=== PATIENT | female | born 1990 | race Caucasian/White ===

== ENCOUNTER 2022-07-15 01:27 | Day surgery (SDC) | payer OTHER, SELFPAY ==
[2022-07-08 10:52] VITALS: BMI 21.2
--- NOTE | 2022-07-08 11:05 | PC.NURSE ---
Report to the Outpatient Waiting Room, entrance under the green pavilion located off [facility], at 0730 on 07/15/22. Planned Procedure Time: 0930. Time changes happen often and if your time is changed the preop area will call you the afternoon before. - You and your visitor will be asked to self-screen and do not enter if you have any COVID symptoms. - Only one visitor is requested with a max of two and NO children visitors are allowed at this time. - The patient visitor may be requested to leave or wait in car when not with patient due to distancing restrictions. - A mask is optional within the hospital at this time. Patients may have clear liquids (water, carbonated beverages, clear teas, apple juice) until 3 hours prior to surgery with a maximum of 20 ounces. - No food from midnight until time of surgery Take the following medications with a SIP of water the morning of surgery: N/A DO NOT STOP ANY OF YOUR OTHER PRESCRIPTION MEDICATIONS PRIOR TO SURGERY ?EXCEPT THE FOLLOWING Medications to discontinue per physician N/A Please no make-up, nail hebrew, hairspray, perfume, deodorant, or body powder the day of surgery. No jewelry (including any body piercings) or valuables the day of surgery, leave them at home. Please take a shower or bath the night before, or the morning of, surgery with an antibacterial soap. Wear comfortable, loose fitting clothing. - Jewelry must be removed prior to entering the operating room. Rings and piercings that are not removed may be cut off. - The hospital will not accept responsibility for valuables. - Please leave all valuables, including medications, at home the day of surgery. If you are going home after surgery, a licensed special needs bus driver must drive you home. - NO public transportation without another adult if you receive anesthesia. - We recommend that an adult stay with you for 24 hours following discharge. - We also recommend that you do not drive, make important decision, drink alcoholic beverages, or take any drugs that were not prescribed by your health care provider for at least 24 hours after your discharge time. Follow any additional instructions given to you from your surgeon. If you or anyone in your household have experienced Covid symptoms in the past week, please notify your surgeon or the nurse liaison at the phone number below for possible testing. Telephone instructions given to patient and asked if any additional questions and then verbalized understanding. Patient advised to call surgeon office or pre surgery nurse liaison [phone] if any additional questions.
--- NOTE | 2022-07-14 11:43 | P.PNAN_ITS ---
Anes - Initial Pre Proc Eval Procedure: Operation Date: 07/15/22 09:30 Proposed Procedures p Diagnostic Laparoscopy, Bilateral Salpingectomy - Mercedes Greenwood DO Date/Time: 07/14/22 11:43 Surgeon: Mercedes Greenwood DO Pre Op Diagnosis: Desires Surgical Sterility Patient Data Age: 31 Gender: F Height: 1.63 m Weight: 56.25 kg Allergies Allergy/AdvReac Type Severity Reaction Status Date / Time No Known Allergies Allergy Verified 07/15/22 08:06 Home Medications Medication Instructions Recorded Confirmed Type citalopram 20 mg tablet (Celexa) 20 mg PO HS 07/08/22 07/15/22 History Patient hx anesthesia problems: none Family hx anesthesia problems: none Results Review: All pre-operative results and documents have been reviewed as part of the pre- operative evaluation. [facility] Past Medical History Medical History Anxiety Bipolar 1 disorder Depression Marijuana abuse Smoker Social History Social History Smoking packs per day: 0.75 Smoking cigarettes per day: 15.0 Years smoked: 19 Smoking pack-years: 14.25 Smoking status: Current every day smoker Tobacco type: cigarettes Alcohol intake: current Alcohol use details: glass of wine per month Substance use type: marijuana Other substance usage details: medical marijuana card-uses 1-2x/day Living arrangements: with family Spiritual care concerns: No Anes - Eval Final PreProcedure Day of Procedure 07/14/22 11:43 Patient weight: normal Heart: regular rate and rhythm Lungs: clear to auscultation and normal air movement Airway: Mallampati scale class II Neurological: alert and oriented Last oral intake: >/= 8 hours ASA classification: II Emergent: no Anesthetic plan: proceed Anesthesia type and monitoring: general ETT Results Review: All pre-operative results and documents have been reviewed as part of the pre- operative evaluation. Informed Consent: The patient's anesthetic plan and its attendant risks and benefits were discussed with the patient/family/POA. Questions were solicited and answers provided to the satisfaction of the patient/family/POA.
[2022-07-15] VITALS (9 sets, daily range): BP systolic 97–127; BP diastolic 61–75; PULSE 50–84; RESP 12–20; TEMP 36.1–36.6; O2SAT 95–100
[2022-07-15] MEDS: ACETAMINOPHEN 500 MG TABLET 1000 MG PO (08:08)
[2022-07-15] MEDS: GABAPENTIN 300 MG CAPSULE PO (08:08)
[2022-07-15] MEDS: LACTATED RINGERS 1,000 ML 30 ML IV CONT ×2 (09:01→10:46)
--- NOTE | 2022-07-15 09:11 | WPDHPUPDATE1 ---
History and Physical Update Update Date/Time: 07/15/22 09:11 History and Physical has been reviewed, including an updated exam of the patient. There are NO changes in the patient's condition. Risks, benefits, and alternatives have been discussed and questions answered. Patient agrees to proceed with procedure.
--- NOTE | 2022-07-15 09:11 | PM.IMHP ---
H&P: HPI History of Present Illness Date/Time: 07/15/22 09:11 Chief Complaint: I'm here for my surgery Narrative: Patient presents for surgical sterilization. Review of Systems Review of Systems: All systems reviewed & are unremarkable except as noted in HPI and below PMFSH Past Medical History Medical History Anxiety Bipolar 1 disorder Depression Marijuana abuse Smoker Social History Social History Smoking packs per day: 0.75 Smoking cigarettes per day: 15.0 Years smoked: 19 Smoking pack-years: 14.25 Smoking status: Current every day smoker Tobacco type: cigarettes Alcohol intake: current Alcohol use details: glass of wine per month Substance use type: marijuana Other substance usage details: medical marijuana card-uses 1-2x/day Living arrangements: with family Spiritual care concerns: No Meds Home Medications and Allergies Home Medications Medication Instructions Recorded Confirmed Type citalopram 20 mg tablet (Celexa) 20 mg PO HS 07/08/22 07/15/22 History Allergies Allergy/AdvReac Type Severity Reaction Status Date / Time No Known Allergies Allergy Verified 07/15/22 08:06 Vital Signs Vital Signs - 24 hr 07/15/22 07:49 Temperature 36.1 C L Pulse Rate 63 Respiratory Rate 16 Blood Pressure 100/64 Pulse Oximetry 100 Oxygen Delivery Room Air Exam Const: General: comfortable and no acute distress Eyes: General: appearance normal, both eyes and all related structures Resp: Effort & Inspection: normal respiratory effort Auscultation: clear to auscultation bilaterally Cardio: Rate: regular rate Rhythm: regular rhythm GI: GI Palp: Yes Soft to palpation Auscultation: normal bowel sounds Extrem: General: normal to inspection Psych: Mental Status: mental status grossly normal Assessment and Plan Assessment and plan (1) Sterilization: Code(s): Z30.2 - Encounter for sterilization Status: Acute Plan Diagnostic laparoscopy, bilateral salpingectomy for permanent sterilization
[2022-07-15] MEDS: BUPIVACAINE/EPINEPHRINE 0.25% 10 ML VIAL 20 ML INFILTRATE (09:52)
--- NOTE | 2022-07-15 10:47 | W.PM.PROC2 ---
Procedure Note - Detailed Date of Procedure 07/15/22 Pre-op Diagnosis Desires Surgical Sterility Post-op Diagnosis Same Procedure Performed Diagnostic laparoscopy, bilateral salpingectomy, lysis of adhesions Surgeon Mercedes Greenwood DO Service Promoter Salesperson Funmi Anesthesia General Indications Desires permanent sterilization Findings Normal appearing vulva and vaginal canal, medium cervix. Internally, the stomach, liver and gallbladder were unremarkable. She may have a small bowel diverticulum, there was an abnormal pouching of a segment that appeared to balloon out rather than be a normal cylindrical shape. The uterus, cul-de-sac, bladder and right tube were normal. The left tube was adhered and peritonealized tightly to the backside of the ovary and up underneath the round ligament. The fimbriae were tucked under a sheet of peritoneum at the round ligament and weren't visible until uncovered. Description of Procedure Patient was taken to the operating room where she was placed under general anesthesia. She was prepped and draped in the normal sterile fashion in a dorsal lithotomy position. A time-out was performed. Speculum was placed in the vagina and the cervix was visualized. Posterior lip of the cervix was grasped with a long Allis clamp. The cervix was sounded to 8 cm. The cervix was sequentially dilated up to accommodate the Kroner uterine manipulator. Once this was placed the Allis and speculum were removed. Gloves were changed and attention was then turned to the abdomen. The skin above the umbilicus was grasped with 2 penetrating towel clamps and the area was injected with local. A small incision was made and a Veress needle was introduced. The saline water drop test was performed to confirm intraperitoneal placement. CO2 insufflation was then started and the abdomen was brought to a filling pressure of 15 mmHg. The Veress needle was then replaced with a 5 mm Optiview trocar. This was inserted and inspection of the abdomen revealed no evidence of bowel or vascular injury upon initial entry. Additional port sites in the right and left lower quadrants were then identified, injected and incised. 5 mm trocars were introduced under direct visualization. Patient was then placed in steep Trendelenburg position. Survey of the pelvis was as mentioned above. Starting on the right side, the tube was elevated and cauterized and transected off using the LigaSure. The tube was thick and had to be dissected in half to be removed completely from the body. On the left side the dissection was slightly more complicated. The peritoneal reflection of the sigmoid colon was released to allow for better visualization of the adnexa. The peritoneum up at the round ligament was carefully dissected and peeled back revealing the fimbria. The fimbria were then traced back into the ampullary and isthmic portions of the tube. These were cauterized and transected off of their close proximity to the ovary as well as the adnexal peritoneum. Once the tube was successfully removed, it was handed off through the automotive service assistant port. Areas of oozing were made hemostatic using the LigaSure. Copious irrigation was performed in the pelvis and all fluid was suctioned out. Amanda was placed over the bed of dissection on the left-hand side to ensure good hemostasis. The field appeared dry at the conclusion of the procedure. All instruments and trocars were removed from the abdomen. The CO2 gas was allowed to escape. The abdominal incisions were closed with 4-0 Monocryl in a subcuticular fashion and covered with skin glue. The patient was taken to the recovery room in stable condition. All instrument and sponge counts were correct at the conclusion of the procedure. Estimated Blood Loss 20 IV Fluids 1,000 Packing No Pathology Yes Complications No immediate complications Condition Stable Disposition PACU
[2022-07-15] MEDS: fentaNYL CITRATE INJ (*CRX) 100 MCG/2 ML VIAL 25 MCG IV PUSH ×6 (11:13→11:26)
[2022-07-15] MEDS: oxyCODONE HCL (*CRX) 5 MG TAB IR PO (12:08)
== END 2022-07-15 13:02 | disposition home or self-care (01) ==
PROVIDERS: PCP Family Medicine; Visit Provider Obstetrics & Gynecology Gynecologic Oncology
PROC: (CPT 49320; principal; 2022-07-15 09:30)
DX: Z30.2 Encounter for sterilization (principal); N73.6 Female pelvic peritoneal adhesions (postinfective); F31.9 Bipolar disorder, unspecified; F41.9 Anxiety disorder, unspecified; F17.210 Nicotine dependence, cigarettes, uncomplicated; F12.90 Cannabis use, unspecified, uncomplicated
CPT/HCPCS: 58661; 88302; A9270; J0330; J1100; J2250; J2405; J2704; J3010; J7030; J7120

== ENCOUNTER 2022-07-16 08:13 | Emergency (ER) | payer OTHER, SELFPAY ==
--- NOTE | ~2022-07-16 | CT_ITS ---
EXAMINATION: CTA chest abdomen pelvis DATE: 07/16/2022 10:07 INDICATION: Pleuritic chest pain. TECHNIQUE: Computed tomographic angiography (CTA) of the chest, abdomen, and pelvis was performed wit h 100 mL Omnipaque-350 intravenous contrast. Automated exposure control and iterative reconstruction technique were employed. The dose-length product was 343.08 mGy-cm. Maximum intensity projection 3D-r econstructions of the aorta and other arteries were constructed by the technologist on a separate wor kstation. COMPARISON: None. FINDINGS: CHEST CTA: There is mild emphysema. No pleural effusion. The heart size is normal. No pericardial effusion. Thor acic aorta is normal in caliber. No aneurysm or dissection. There is no pulmonary embolus. ABDOMEN AND PELVIS CTA: The liver, gallbladder, spleen, pancreas, adrenal glands, and kidneys are normal. There is a dilated loop of distal small bowel. The visualized portion of the appendix is normal. There is a small umbili betty hernia containing fat. There is soft tissue gas around the umbilicus, consistent with recent surg josé luis. There is a small volume of free intraperitoneal gas, consistent with recent surgery. There is ph ysiologic fluid in the pelvis. There are no pathologically enlarged lymph nodes. There is levoscolios is of thoracolumbar spine. IMPRESSION: 1. Dilated loop of distal small bowel, consistent with adynamic ileus versus small bowel obstruction. 2. No pulmonary embolus. 3. Normal aorta. Reviewed, dictated and finalized at location A. IMPRESSION: 1. Dilated loop of distal small bowel, consistent with adynamic ileus versus sm all bowel obstruction. 2. No pulmonary embolus. 3. Normal aorta.
[2022-07-16 08:27] VITALS: BP 147/71; PULSE 54; RESP 16; TEMP 36.6; O2SAT 100
[2022-07-16 08:46] LABS: Basophils Percent Auto 0.2 % (0.2-1.2); Eosinophils Percent Auto 0.1 % (0-4.4); Hematocrit 43.3 % (37.0-47.0); Hemoglobin 14.3 g/dL (12.0-15.0); Immature Granulocyte Absolute 0.12 K/mm3 (0.00-0.031); Immature Granulocyte Percent A 0.6 % (0-0.5); Lymphocytes Absolute Auto 2.31 K/mm3 (0.9-3.2); Lymphocytes Percent Auto 11.2 % (18.3-44.2); Mean Corpuscular Hemoglobin 29.4 pg (26-34); Mean Corpuscular Volume 88.9 fl (80-100); Mean Platelet Volume 10.8 fl (7.4-10.4); Monocytes Absolute Auto 1.3 K/mm3 (0.1-0.6); Monocytes Percent Auto 6.5 % (2.6-8.5); Neutrophils Absolute Auto 16.9 K/mm3 (1.3-6.7); Neutrophils Percent Auto 81.4 % (45.5-73.1); Platelet Count Result 189 k/mm3 (150-375); Red Blood Count 4.87 M/mm3 (4.2-5.4); Red Cell Distribution Width 13.2 % (11.5-14.5); White Blood Count 20.7 K/mm3 (4.5-10.0)
[2022-07-16 08:58] LABS: Alanine Aminotransferase 20 U/L (6-35); Alkaline Phosphatase 54 U/L (38-126); Anion Gap 7 mmol/L (8-16); Appearance Urine Clear (Clear); Aspartate Amino Transferase 25 U/L (14-36); Bacteria Urine Rare /hpf; Bilirubin Urine Negative (Negative); Bilirubin,Total 0.7 mg/dL (0.2-1.3); Blood Urea Nitrogen 6 mg/dL (7-17); Blood Urine 1+ (Negative); Calcium 9.3 mg/dL (8.4-10.2); Carbon Dioxide 29 mmol/L (22-30); Chloride 102 mmol/L (98-107); Color Urine Yellow (Yellow); Estimated CRCL calculation 112 ml/min; Estimated Glomerular Filt Rate > 60; Glucose 130 mg/dL (65-110); Glucose Urine UA Negative (Negative); Ketones Urine Negative (Negative); Leukocyte Esterase Ur 1+ LEU/UL (Negative); Lipase 61 U/L (23-300); Nitrate Urine Negative (Negative); Non Pathogenic Casts 0-2; Potassium 3.4 mmol/L (3.4-5.0); Protein Urine Negative (Negative); RBC Urine 0-2 /hpf (0-2); Sodium 138 mmol/L (137-145); Specific Grav Ur 1.014 (1.001-1.035); Squamous Epithelial Cell Urine Occasional /hpf (Few); Urobilinogen Urine 0.2 mg/dL (<2.0); pH Urine 6.5 (5.0-9.0)
[2022-07-16 09:22] LABS: Add Urine Microscopic? YES
[2022-07-16] MEDS: MORPHINE SULFATE (*CRX) 4 MG/ML INJ IV PUSH ×2 (09:36→09:56)
--- NOTE | 2022-07-16 11:40 | ED.GENADULT ---
HPI - General Adult General Chief complaint: Recheck/Abnormal Lab/Rx Stated complaint: pain post surgery Time Seen by Provider: 07/16/22 08:31 History of Present Illness HPI narrative: Patient is a 31-year-old female who presents ER with right upper quadrant abdominal pain and right-sided back pain ongoing since yesterday. Patient is currently 1 day postop from a tubal ligation that was performed here by Dr. Greenwood. Patient denies fevers or chills or sweats. Has had some nausea but has been passing gas and had a bowel movement earlier. Has lower abdominal cramping but the majority of her pain is located in the right upper quadrant. Worse with movement and also with deep breath. No hemoptysis. No dyspnea. Related Data Home Medications Medication Instructions Recorded Confirmed citalopram 20 mg tablet (Celexa) 20 mg PO HS 07/08/22 07/15/22 Allergies Allergy/AdvReac Type Severity Reaction Status Date / Time No Known Allergies Allergy Verified 07/16/22 08:31 Review of Systems Review of Systems: All systems reviewed & are unremarkable except as noted in HPI and below Constitutional: Constitutional: Denies chills, Denies fatigue and Denies fever(s) ENT: Denies nasal congestion and Denies sore throat Cardiovascular: Cardiovascular: Denies chest pain, Denies rapid heart rate and Denies radiating jaw, neck or arm pain Comments: Chest wall pain Respiratory: Respiratory: Denies cough and Denies dyspnea Comments: Pain with deep breath Gastrointestinal: Gastrointestinal: Reports abdominal pain, Denies bloating, Denies diarrhea, Denies nausea and Denies vomiting Musculoskeletal: Musculoskeletal: Reports back pain, Denies arthralgias and Denies muscle cramps PMFSH Past Medical History Medical History Anxiety Bipolar 1 disorder Depression Marijuana abuse Smoker Social History Social History Smoking packs per day: 0.75 Smoking cigarettes per day: 15.0 Years smoked: 19 Smoking pack-years: 14.25 Smoking status: Current every day smoker Tobacco type: cigarettes Alcohol intake: current Alcohol use details: glass of wine per month Substance use type: marijuana Other substance usage details: medical marijuana card-uses 1-2x/day Living arrangements: with family Spiritual care concerns: No Exam Narrative: GENERAL: Uncomfortable-appearing, well-nourished, and in no acute distress. HEAD: Normocephalic, atraumatic. ENT: Mucous membranes moist. NECK: Supple. CHEST: Clear to auscultation. No respiratory distress. HEART: Regular rate and rhythm. Normal peripheral pulses. ABDOMEN: Soft, tender palpation right upper quadrant without guarding, nondistended, normal active bowel sounds. Well-healing incision sites to the lower abdomen with bruising. No cellulitis or drainage or dehiscence. EXTREMITIES: Normal range of motion. No edema. SKIN: Warm, dry, no rash. NEURO: Alert and oriented x3. Course Course Emergency Course: Discussed case with Dr. Greenwood. Feels pt is appropriate for outpatient follow up. Will give more pain medication for home. Patient having normal stool/flatus. Vital Signs Vital signs: Vital Signs Temperature 97.8 F 07/16/22 08:27 Pulse Rate 54 L 07/16/22 08:27 Respiratory Rate 16 07/16/22 08:27 Blood Pressure 147/71 H 07/16/22 08:27 Pulse Oximetry 100 07/16/22 08:27 Oxygen Delivery Room Air 07/16/22 08:27 Temperature 97.8 F 07/16/22 08:27 Pulse Rate 54 L 07/16/22 08:27 Respiratory Rate 16 07/16/22 08:27 Blood Pressure 147/71 H 07/16/22 08:27 Pulse Oximetry 100 07/16/22 08:27 Oxygen Delivery Room Air 07/16/22 08:27 Medical Decision Making Vital Signs Vital Signs: Vital Signs Temperature 97.8 F 07/16/22 08:27 Pulse Rate 54 L 07/16/22 08:27 Respiratory Rate 16 07/16/22 08:27 Blood Pressure 147/71 H 07/16/22 08:27 Pulse Oximetry 100 07/16/22 08:27 Oxygen Delivery Room Air 07/16/22 08:27
== END 2022-07-16 12:20 | disposition home or self-care (01) ==
PROVIDERS: Emergency Provider Emergency Medicine; PCP Family Medicine
DX: G89.18 Other acute postprocedural pain (principal); R10.11 Right upper quadrant pain; F31.9 Bipolar disorder, unspecified; F41.9 Anxiety disorder, unspecified; R93.3 Abnormal findings on diagnostic imaging of other parts of digestive tract
CPT/HCPCS: 36415; 71275; 74174; 80053; 81001; 83690; 85025; 87086; 87088; 96374; 99284; J2270; Q9967